=== PATIENT | male | born 1970 | race Caucasian/White ===

== ENCOUNTER 2016-10-17 18:11 | Emergency (ER) | payer OTHER ==
--- NOTE | ~2016-10-17 | CR63 ---
[facility] A Service of [facility] RADIOLOGY TEXT RESULTS PATIENT: ENRIQUE GARCIA LOCATION: [facility]FT[facility] : 74 UNIT #: [id number] AGE: [address]: RICHIE ASHLEY APRN SEX: M ORDER DR: [id number] [facility] [address] [place], [place] [address] [id number] MR#: [id number] Acc #: [id number] NAME: ENRIQUE GARCIA. : 1970 SEX: M STUDY DATE/TIME: 10/17/2016 19:43 UNIT: [facility] ROOM: STUDY DESCRIPTION: CR Chest 2 View Attending Physician: Richie Ashley Aprn Ordering Physician: Richie Ashley Aprn Primary Care Physician: Primary Care Physician No MEDICAL IMAGING REPORT This report is preliminary unless electronic signature is present EXAM Chest PA and lateral 10/17/2016 HISTORY Left-side chest pain and shoulder pain and upper back pain and cough for 1 week. FINDINGS PA and lateral examination of the chest upright shows a good expansion of the parenchyma with a normal distribution of the pulmonary vascularity. There is no indication of congestion, effusion, infiltrate, tumor, or nodular density. The pleural reflections and diaphragmatic contours are normal. The cardiac silhouette and mediastinal anatomy is within normal limits. IMPRESSION Normal chest. Dictated by... Judson Isabel M.D. THIS IS AN ELECTRONICALLY VERIFIED REPORT Judson Isabel M.D. at 10/18/2016 2:12 PM Jonathon TD: 10/18/2016 08:57 JOB #: [id number] MEDICAL IMAGING REPORT Page 1 of 1 COPY
[~2016-10-17 18:11] MED LIST: ACULAR10 ML OD; ALBUTEROL17 GM INH; BROMFED DM COU118 ML PO; CLINDAMYCIN HC300 MG PO; CORTISPORIN-TC10 ML OT; ERYTHROMYCIN O3.5 G1 OD; ERYTHROMYCIN O3.5 GM OD; KEFLEX500 M1 PO; MOTRIN600 M1 PO; NO MEDICATIONS; ROBITUSSIN-PE240 ML PO; TYLENOL #3 PO; VOLTAREN50 MG PO; ZITHROMAX PO; ZOFRAN PO
== END 2016-10-17 21:15 | disposition home or self-care (01) ==
LOC: CED 18:11 → CFTX 18:11
DX: S29.012A Strain of muscle and tendon of back wall of thorax, initial encounter (principal); F17.210 Nicotine dependence, cigarettes, uncomplicated; J44.9 Chronic obstructive pulmonary disease, unspecified; Z88.0 Allergy status to penicillin; X58.XXXA Exposure to other specified factors, initial encounter
CPT/HCPCS: 71020; 99283